=== PATIENT | male | born 1970 | race Caucasian/White ===

== ENCOUNTER 2024-04-17 11:14 | Emergency (ER) | payer SELFPAY ==
[~2024-04-17] VITALS: Ht 167.6 cm; Wt 70.0 kg
[2024-04-17 11:19] VITALS: O2SAT 100
[2024-04-17] MEDS: HYDRALAZINE 20MG/ML VIAL IV ONE (11:54)
[2024-04-17 12:18] LABS: BASOPHILS % 0.4 % (0.0-2.0); EOSINOPHILS % 1.3 % (0.0-5.0); HEMATOCRIT. 46.2 % (42.0-52.0); HEMOGLOBIN. 15.3 g/dL (14.0-18.0); LYMPHOCYTES % 18.7 % (20.0-50.0); MEAN CORPUSCULAR HEMOGLOBIN 32.1 pg (28.0-32.0); MEAN CORPUSCULAR HGB CONC 33.2 g/dL (31.0-37.0); MEAN CORPUSCULAR VOLUME 96.7 fL (80.0-94.0); MEAN PLATELET VOLUME 8.2 fl (7.4-10.4); MONOCYTES % 10.8 % (2.0-8.0); NEUTROPHILS % 68.8 % (40.0-76.0); PLATELET 207 x1000/uL (130-400); RED BLOOD CELL COUNT 4.78 mill/uL (4.7-6.1); RED CELL DISTRIBUTION WIDTH 13.4 % (11.6-14.6); WHITE BLOOD COUNT 6.9 x1000/uL (4.5-11.0)
[2024-04-17 12:24] LABS: CHLORIDE 103 mEq/L (98-107); POTASSIUM 4.3 mEq/L (3.5-5.1); SODIUM 139 mEq/L (136-145)
[2024-04-17 12:25] LABS: CARBON DIOXIDE 28 mEq/L (21-32)
[2024-04-17 12:26] LABS: CALCIUM 9.3 mg/dL (8.7-10.4)
[2024-04-17 12:30] LABS: CREATININE 0.8 mg/dL (0.6-1.3); GLUCOSE 114 mg/dL (70-105); UREA NITROGEN BLOOD 15 mg/dL (9-23)
[2024-04-17 13:30] VITALS: BP 129/71; PULSE 71; RESP 18; TEMP 36.89184; O2SAT 100
== END 2024-04-17 13:50 | disposition home or self-care (01) ==
LOC: ER 11:50
DX: I10 Essential (primary) hypertension (principal)
CPT/HCPCS: 80048; 85025; 36415; 99283; A4663; Z7610 ×2; A4606; J0360